=== PATIENT | male | born 1970 | race Caucasian/White ===

== ENCOUNTER 2022-11-16 01:38 | Emergency (ER) | payer BC ==
[~2022-11-16] VITALS: Ht 177.8 cm; Wt 102.3 kg
[2022-11-16] MEDS ORDERED: normal saline 1000ML IV soln IV ONE (02:55)
[2022-11-16 03:12] LABS: BASOPHILS % (AUTO) 0.2 % (0-1); EOSINOPHILS # (AUTO) 0.2 X10'3 (0-0.9); HEMOGLOBIN 15.8 g/dl (14.0-17.9); LYMPHOCYTES # (AUTO) 1.4 X10'3 (1.1-4.8); LYMPHOCYTES % (AUTO) 14.8 % (21-51); MEAN CORPUSCULAR HEMOGLOBIN 31.7 PG (27.0-31.0); MEAN CORPUSCULAR HGB CONC 34.5 g/dL (33.0-36.5); MEAN PLATELET VOLUME 10.8 FL (7.4-10.4); MONOCYTES # (AUTO) 0.7 X10'3 (0-0.9); MONOCYTES % (AUTO) 7.6 % (2-12); NEUTROPHILS # (AUTO) 7.3 X10'3 (1.8-7.7); NEUTROPHILS % (AUTO) 75.4 % (42-75); PLATELET COUNT 123 X10'3 (140-440); RED CELL DISTRIBUTION WIDTH 13.4 % (11.5-14.5); WHITE BLOOD COUNT 9.6 X10'3 (4.5-11.0)
[2022-11-16 03:25] LABS: ALANINE AMINOTRANSFERASE 29 U/L (12-78); ALBUMIN/GLOBULIN RATIO 1.2 (1.1-1.5); ALKALINE PHOSPHATASE 74 IU/L (46-116); ANION GAP 10 (8-16); ASPARTATE AMINO TRANSFERASE 24 U/L (10-37); BILIRUBIN,TOTAL 0.9 MG/DL (0.1-1.0); BLOOD UREA NITROGEN 19 MG/DL (7-18); BUN/CREATININE RATIO 21.3 (10.0-20.0); CHLORIDE 105 MMOL/L (99-107); CREATININE 0.89 MG/DL (0.60-1.10); GLUCOSE 96 MG/DL (70-104); MAGNESIUM 1.9 MG/DL (1.5-2.4); SODIUM 140 MMOL/L (135-145); TOTAL PROTEIN 7.4 G/DL (6.4-8.2); eGFR 90 ML/MIN
[2022-11-16 03:48] LABS: LARGE PLATELETS FEW; PLATELET ESTIMATE DECREASED
[2022-11-16] MEDS ORDERED: iohexol 300mg/ml 100ml inj. ONE (03:48)
[2022-11-16 05:30] VITALS: BP 159/89
[2022-11-16 06:12] LABS: CLARITY,URINE CLEAR (Clear); COLOR,URINE YELLOW (Yellow); GLUCOSE, URINE NEGATIVE (Neg); KETONES,URINE 40 mg/dl (Neg); LEUKOCYTE ESTERASE ,URINE NEGATIVE (Neg); NITRITES, URINE NEGATIVE (Neg); OCCULT BLOOD,URINE NEGATIVE (Neg); PH,URINE 6.5 (4.8-8.0); PROTEIN,URINE NEGATIVE (Neg); UROBILINOGEN,URINE 0.2 E.U/dL (0.2-1.0)
[2022-11-16 06:13] LABS: UA COLLECTION TYPE URINAL
== END 2022-11-16 07:49 | disposition home or self-care (01) ==
LOC: ER 01:40
DX: R10.30 Lower abdominal pain, unspecified (principal); Z79.899 Other long term (current) drug therapy
CPT/HCPCS: 36415; 74177; 80053; 81003; 83605; 83735; 84145; 85008; 85025; 87040; 87077; 87186; 93005; 96360; 96361; 99285; J3490; J7030; Q9967

== ENCOUNTER 2023-03-31 06:54 | Day surgery (SDC) | payer BC ==
[2023-03-25 11:26] LABS: BASOPHILS % (AUTO) 0.5 % (0-1); EOSINOPHILS # (AUTO) 0.2 X10'3 (0-0.9); EOSINOPHILS % (AUTO) 5.3 % (0-6); LYMPHOCYTES # (AUTO) 1.3 X10'3 (1.1-4.8); MEAN CORPUSCULAR HEMOGLOBIN 31.3 PG (27.0-31.0); MEAN CORPUSCULAR HGB CONC 33.9 g/dL (33.0-36.5); MEAN CORPUSCULAR VOLUME 92.5 FL (78-98); MEAN PLATELET VOLUME 10.3 FL (7.4-10.4); MONOCYTES # (AUTO) 0.4 X10'3 (0-0.9); MONOCYTES % (AUTO) 10.3 % (2-12); NEUTROPHILS % (AUTO) 49.9 % (42-75); PRE OP HEMATOCRIT 44.4 % (42.0-52.0); PRE OP PLATELET COUNT 120 X10'3 (140-440); PRE OP WHITE BLOOD COUNT 3.9 10'3 (4.8-10.8); RED CELL DISTRIBUTION WIDTH 13.3 % (11.5-14.5)
[2023-03-25 11:26] LABS: BILIRUBIN,URINE NEGATIVE (Neg); CLARITY,URINE CLEAR (Clear); COLOR,URINE YELLOW (Yellow); GLUCOSE, URINE NEGATIVE (Neg); KETONES,URINE NEGATIVE (Neg); LEUKOCYTE ESTERASE ,URINE NEGATIVE (Neg); NITRITES, URINE NEGATIVE (Neg); OCCULT BLOOD,URINE NEGATIVE (Neg); PROTEIN,URINE NEGATIVE (Neg)
[2023-03-25 11:45] LABS: ALBUMIN/GLOBULIN RATIO 1.3 (1.1-1.5); ALKALINE PHOSPHATASE 65 IU/L (46-116); BLOOD UREA NITROGEN 14 MG/DL (7-18); BUN/CREATININE RATIO 13.1 (10.0-20.0); CALCIUM 9.1 MG/DL (8.5-10.1); CHLORIDE 106 MMOL/L (99-107); CREATININE 1.07 MG/DL (0.60-1.10); PRE OP ALT 36 U/L (30-65); PRE OP ANION GAP 8 (8-16); PRE OP AST 25 U/L (10-37); PRE OP BILIRUB, TOTAL 0.7 MG/DL (0.0-1.0); PRE OP GLUCOSE 93 MG/DL (70-104); PRE OP POTASSIUM 4.6 MMOL/L (3.4-5.1); PRE OP SODIUM 141 MMOL/L (135-145); TOTAL CARBON DIOXIDE 26.8 MMOL/L (24-32); eGFR 73 ML/MIN
[2023-03-25 12:09] LABS: UA COLLECTION TYPE VOIDED
[2023-03-31] VITALS (9 sets, daily range): BP systolic 108–143; BP diastolic 65–88; PULSE 48–98; RESP 12–16; TEMP 98.5; O2SAT 97–100
[~2023-03-31] VITALS: Ht 177.8 cm; Wt 94.8 kg
[~2023-03-31 06:54] MED LIST: NO HOME MEDS; cefazolin 2gm/D5W 100mL 100 ML IV ONE; famotidine 20mg tablet PO ONE; ringers solution, lacted 1,000 ML IV SCH
[2023-03-31] MEDS ORDERED: LIDOcaine 1% 30ml preserv. free vial ONE (12:25)
[2023-03-31] MEDS ORDERED: BUPIVAcaine/PF 2.5 mg/ml (0.25%) 30ml vial ONE (12:26)
[2023-03-31] MEDS ORDERED: sevoflurane 250ml liquid IH ONE (13:08)
[2023-03-31] MEDS ORDERED: ondansetron/PF 4mg/2ml inj ONE (13:08)
[2023-03-31] MEDS ORDERED: dexamethasone sod phosphate 10mg/ml inj ONE (13:08)
[2023-03-31] MEDS ORDERED: midazolam 1 mg/ML 2ml injection ONE (13:12)
[2023-03-31] MEDS ORDERED: rocuronium 10mg/ml inj IV ONE (13:13)
[2023-03-31] MEDS ORDERED: fentaNYL /PF 50mcg/ml 5ml ampule ONE (13:13)
[2023-03-31] MEDS ORDERED: propofol inj 20 ML IV ONE (13:13)
[2023-03-31] MEDS ORDERED: ringers solution, lacted 1,000 ML IV SCH (13:30)
[2023-03-31] MEDS ORDERED: morphine 4 MG/ML inj SYRINge IV PRN (13:30)
[2023-03-31] MEDS ORDERED: meperidine/PF 25mg/ml syringe IV PRN ×3 (13:30)
[2023-03-31] MEDS ORDERED: morphine 2 MG/ML inj. syringe IV PRN (13:30)
[2023-03-31] MEDS ORDERED: proCHLORperazine 10 MG/2 ml inj IV PRN (13:30)
[2023-03-31] MEDS ORDERED: ondansetron/PF 4mg/2ml inj IV PRN (13:30)
--- NOTE | 2023-03-31 14:06 | NUR ---
Received from OR via [facility] TO RR 7, accompanied by Anesthesiologist DR MONTALVO and report given by Anesthesiolgist. PT PRESENT WITH LMA, O2 VIA MASK AT 7L WITH SPO2 AT 100%. NO S/S DISTRESS, PULSES PALPABLE IN UE AND LE. LEFT GROIN SITE WITH DERMABOND, CDI. HR 48, MD MCNAIR IN ROOM AND IS AWARE. LR RUNNING THRU PIV IN LEFT HAND. SCD'S BLE. WILL CONTINUE TO ASSESS
--- NOTE | 2023-03-31 15:26 | NUR ---
PT STABLE FOR D/C PER MD ORDERS. ALL D/C PPWK WAS REV'D WITH PATIENT, ALL QUESTIONS, COMMENTS AND CONCERNS WERE ANSWERED AT THIS TIME. VSS, MINIMAL (TOLERABLE PER PT) PAIN. DERMABOND TO LEFT GROIN CDI. PT WAS ABLE TO DRESS HIMSELF, TRANSFER HIMSELF TO W/C. PT WAS WHEELED OUT VIA W/C TO PRIVATE VEHICLE WHERE MOM WAS WAITING. PT WAS TRANSFERRED INTO VEHICLE WITHOUT INCIDENT.
== END 2023-03-31 15:26 | disposition home or self-care (01) ==
LOC: PAS 06:54
PROVIDERS: ATTEND Surgery
DX: R59.0 Localized enlarged lymph nodes (principal); C83.05 Small cell B-cell lymphoma, lymph nodes of inguinal region and lower limb; D69.6 Thrombocytopenia, unspecified; Z87.891 Personal history of nicotine dependence; Z98.818 Other dental procedure status; Z88.2 Allergy status to sulfonamides; Z79.899 Other long term (current) drug therapy
CPT/HCPCS: 36415; 38531; 80053; 81003; 82948; 85025; J0690; J1100; J2175; J2250; J2405; J2704; J3010; J3490; J7030; J7120; Z7506; Z7512; A4215; A4618; A6258; A7000